=== PATIENT | female | born 1960 | race Caucasian/White ===

== ENCOUNTER 2017-01-22 06:51 | Emergency (ER) | payer BC ==
[~2017-01-22] VITALS: Ht 165.1 cm; Wt 84.8 kg
[~2017-01-22 06:51] MED LIST: GABA-112 PO
[2017-01-22 06:59] VITALS: Ht 165.1 cm; Wt 84.8 kg
[2017-01-22] MEDS ORDERED: NAPR250T43 PO (07:23)
[2017-01-22] MEDS ORDERED: OXYCODONE/ACETAMINOPHEN 5-325 TAB PO ONE (07:30)
--- NOTE | 2017-01-22 07:37 | DIAGNOSTIC IMAGING REPORT ---
RIGHT KNEE 1 OR 2 VIEWS ROUTINE CLINICAL HISTORY: Right knee pain. Trauma. COMPARISON: None. DISCUSSION: No acute fractures are visualized. There is trace joint fluid. There are mild osteoarthritic changes. IMPRESSION: Mild degenerative change. No acute fractures are visualized. Electronically signed by: Manjeet White M.D. 01/22/2017 7:35 AM Dictated Date/Time: 01/22/2017 7:34 AM
[2017-01-22] MEDS ORDERED: OXYC-57 PO (07:39)
[2017-01-22 07:50] VITALS: BP 133/71; PULSE 95; O2SAT 99
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
== END 2017-01-22 07:58 | disposition home or self-care (01) ==
LOC: C.EDB 06:54 → C.EDA 07:58
DX: M25.561 Pain in right knee (principal); F17.210 Nicotine dependence, cigarettes, uncomplicated; Z96.652 Presence of left artificial knee joint; Z82.49 Family history of ischemic heart disease and other diseases of the circulatory system; Z83.6 Family history of other diseases of the respiratory system; Z79.899 Other long term (current) drug therapy

== ENCOUNTER 2020-03-08 09:02 | Observation (INO) ==
--- NOTE | 2020-03-02 15:18 | Anesthesiology Consultation ---
Date of Service March 02, 2020 Assessment & Plan (1) Encounter for pre-operative examination: Per nursing phone assessment on 02/29/20: Travel screen- Lives in [facility] [place]. Traveled to [facility] for doctor appointments. No known COVID-19 positive contacts. No current COVID-19 related symptoms. Patient had COVID-19 testing done 03/01 ([facility] [place])- Awaiting results. - Preop labs out of date: will order CBC, coags for AM DOS Chart Review Chart Review: Acceptable Risk for Surgery (pending COVID-19 results) and Patient NOT seen in Pre Admission Testing History Surgery Operation Date: 03/08/20 07:00 Proposed Procedures p Right Total Knee Arthroplasty - Forest Carrillo, DO Height/Weight Height: 5 ft 5 in Weight: 85.275 kg Allergies Allergy/AdvReac Type Severity Reaction Status Date / Time oxycodone [From Percocet] Allergy Mild HIVES,RASH Verified 02/29/20 12:33 amitriptyline [From Elavil] AdvReac Mild MENTAL Verified 02/29/20 12:33 EFFECT - "went blank" zolpidem [From Ambien] AdvReac MENTAL Verified 02/29/20 12:33 EFFECT "went blank" Medications Home Medications Medication Instructions Recorded Confirmed Last Taken alprazolam [Xanax] 0.25 mg PO TID 12/04/19 02/29/20 Unknown bupropion HCl [Wellbutrin SR] 150 mg PO BID 12/04/19 02/29/20 Unknown diphenhydramine-acetaminophen 1 tab PO HS 12/04/19 02/29/20 Unknown [Tylenol PM Extra Strength] ibuprofen 600 mg PO Q8H PRN 12/04/19 02/29/20 Unknown omeprazole magnesium [Prilosec OTC] 20 mg PO QAM 12/04/19 02/29/20 Unknown tramadol 100 mg PO TID 12/04/19 02/29/20 Unknown gabapentin 1,200 mg PO TID 02/29/20 02/29/20 Unknown Past Medical History Medical History Anxiety Back pain Chronic knee pain GERD (gastroesophageal reflux disease) History of DVT (deep vein thrombosis) 2012- s/p AC x few months, felt 2/2 stasis/lack of mobility History of esophageal dilatation Neuropathy LLE Osteoarthritis Past Family History Family History Mother Diabetes Grandmother (Paternal) Diabetes Other No family history of adverse response to anesthesia Past Surgical History Surgical History H/O toe surgery History of esophagogastroduodenoscopy (EGD) + dilation History of laparoscopy fulgeration of endometriosis History of meniscectomy of right knee History of total left knee replacement Hx of appendectomy Hx of colonoscopy Nausea and vomiting after administration of anesthetic agent S/P epidural steroid injection Social History Smoking Status: Current every day smoker tobacco type: cigarettes Smoking cigarettes per day: 1/2 PACK OR MORE Do You Dip or Chew Tobacco: No Hx Alcohol Use: No Hx Substance Use: No substance use type: does not use Testing Electrocardiogram Date: 12/11/19 Findings: + NSR @ (73) Chest X-Ray Date: 12/11/19 Atherosclerosis of the aortic arch. Cardiac silhouette normal in size. Minimal left basilar opacities. No pleural effusion or pneumothorax. Osseous structures normal. Upper abdomen normal. IMPRESSION: Minimal left basilar opacities likely atelectasis or scarring. No convincing evidence of acute cardiopulmonary disease.
--- NOTE | 2020-03-07 07:53 | History & Physical Report ---
Date of Service March 07, 2020 Assessment & Plan (1) DJD (degenerative joint disease) of knee: We will proceed with a right total knee arthroplasty. Postoperatively she will be started on aspirin for DVT prophylaxis and kept overnight in the hospital for postop medical management. She plans to have home therapy or possible [facility] upon discharge. Aleisha is a low risk for knee replacement surgery. She does not have any major comorbidities. Present on Admission?: Yes History of Present Illness Chief Complaint: Primary osteoarthritis of the right knee Primary Care Provider: Silverio Banks MD Aleisha is a pleasant 59-year-old female who is been dealing with chronic increasing right knee pain. X-rays and clinical examination have been diagnostic for primary osteoarthritis of the right knee. She does have a history of a left knee replacement done by Dr. Bernal in [place]. After failing conservative treatment, she has elected to proceed with a right total knee arthroplasty. Allergies Allergy/AdvReac Type Severity Reaction Status Date / Time oxycodone [From Percocet] Allergy Mild HIVES,RASH Verified 02/29/20 12:33 amitriptyline [From Elavil] AdvReac Mild MENTAL Verified 02/29/20 12:33 EFFECT - "went blank" zolpidem [From Ambien] AdvReac MENTAL Verified 02/29/20 12:33 EFFECT "went blank" Home Medications Home Medications Medication Instructions Recorded Confirmed Type alprazolam [Xanax] 0.25 mg PO TID 12/04/19 02/29/20 History bupropion HCl [Wellbutrin SR] 150 mg PO BID 12/04/19 02/29/20 History diphenhydramine-acetaminophen 1 tab PO HS 12/04/19 02/29/20 History [Tylenol PM Extra Strength] ibuprofen 600 mg PO Q8H PRN 12/04/19 02/29/20 History omeprazole magnesium [Prilosec OTC] 20 mg PO QAM 12/04/19 02/29/20 History tramadol 100 mg PO TID 12/04/19 02/29/20 History gabapentin 1,200 mg PO TID 02/29/20 02/29/20 History Past Med/Surg History Medical History Anxiety Back pain Chronic knee pain GERD (gastroesophageal reflux disease) History of DVT (deep vein thrombosis) 2013- s/p AC x few months, felt 2/2 stasis/lack of mobility History of esophageal dilatation Neuropathy LLE Osteoarthritis Surgical History H/O toe surgery History of esophagogastroduodenoscopy (EGD) + dilation History of laparoscopy fulgeration of endometriosis History of meniscectomy of right knee History of total left knee replacement Hx of appendectomy Hx of colonoscopy Nausea and vomiting after administration of anesthetic agent S/P epidural steroid injection Family History Mother Diabetes Grandmother (Paternal) Diabetes Other No family history of adverse response to anesthesia Social History Preferred Language: Sami Communication Ability: Effective Box Stacker Required: No Beliefs That Will Affect Care: None Current Living Situation: Alone Feels Safe at Home: Yes Smoking Status: Current every day smoker Tobacco Type: cigarettes ; Cigarettes Per Day: 1/2 PACK OR MORE ; Second Hand Exposure: Yes ; Hx Alcohol Use: No Hx Substance Use: No Review of Systems Review of Systems: All systems reviewed & are unremarkable except as noted in HPI & below Physical Exam Constitutional: WD/WN, vitals as above Eyes: PERRL, conjunctivae normal, anicteric sclerae ENMT: external ear and nose normal, oropharynx normal Neck: trachea midline, no thyromegaly Respiratory: normal respiratory effort Cardiovascular: RRR, no murmur, no edema Gastrointestinal (Abdomen): normal bowel sounds, soft, nontender, no hepatosplenomegaly Musculoskeletal: On physical examination of the right knee there is a trace effusion. There is near full range of motion and no evidence of instability. There is significant tenderness palpation along the medial and lateral joint lines and over the distal femoral condyles. Psychiatric: A+Ox3, euthymic affect Results & Data Results & Data ([facility]) Diagnostic Findings Radiographs of the right knee demonstrate advanced osteoarthritis with joint space narrowing osteophyte formation and [id number] articulation. PG Care Time/CCT Total # of Minutes Spent Total Time Spent with Patient: Total time spent is greater than 50% in coordination of care (as documented) at patient's floor/unit and/or counseling patient: Coding Level of Care Code 81802 Initial Inpt Care Lvl 3 Diagnoses DJD (degenerative joint disease) of knee M17.10
[~2020-03-08 09:02] MED LIST changes: +ACETAMINOPHEN 500 MG TAB PO SCH; +BUPIVACAINE 0.25% 30 ML VIAL ONE; +BUPIVACAINE 0.5 % 5 MG/1 ML PF 10ML VIAL ONE; +CEFAZOLIN 2000MG 2,000 MG/15 ML SYR IV SCH; +FAMOTIDINE 20 MG TAB PO SCH; -GABA-112 PO; +GABAPENTIN 600 MG DOSE PO SCH; +LR 500ML BOLUS, THEN 15ML/HR IV SCH; +LR 60ML/HR IV SCH; +ROPIVACAINE 0.5% HCL/PF 150 MG, BUPIVACAINE 0.5% MPF 30 ML, EPINEPHrine 30MG/30ML (OR U... INFIL SCH; +TRANEXAMIC ACID 1,000 MG **IV Intra-op IV SCH; +TRANEXAMIC ACID 1,000 MG **IV Pre-op IV SCH; +dexAMETHasone 4 MG TAB PO SCH
[2020-03-08 09:36] LABS: Basophils # (auto) 0.03 K/uL (0-0.2); Basophils % (auto) 0.6 %; Eosinophils # (auto) 0.12 K/uL (0-0.5); Eosinophils % (auto) 2.4 %; Hematocrit (blood only) 38.5 % (37-47); Hemoglobin 12.9 g/dL (12.0-16.0); Immature Granulocytes # (auto) 0.02 K/uL (0.00-0.02); Immature Granulocytes % (auto) 0.4 %; Lymphocytes # (auto) 1.69 K/uL (1.2-3.4); Lymphocytes % (auto) 34.1 %; Mean Corpuscular Hemoglobin 34.2 pg (25-34); Mean Corpuscular Volume 102.1 fL (80-100); Mean Platelet Volume 10.2 fL (7.4-10.4); Monocytes # (auto) 0.26 K/uL (0.11-0.59); Monocytes % (auto) 5.2 %; Neutrophils # (auto) 2.84 K/uL (1.4-6.5); Neutrophils % (auto) 57.3 %; Platelet Count 330 K/uL (130-400); RDW Coefficient of Variation 13.9 % (11.5-14.5); Red Blood Count 3.77 M/uL (4.2-5.4); White Blood Count 4.96 K/uL (4.8-10.8)
[2020-03-08 09:54] LABS: Mean Corpuscular Hgb Conc 33.5 g/dL (32-36); Partial Thromboplastin Ratio 0.8; Partial Thromboplastin Time 23.6 Seconds (21.0-31.0); Prothrombin Time 10.1 Seconds (9.0-12.0)
[2020-03-08] MEDS ORDERED: ePHEDrine sulfate 50 MG/ML AMP IV PRN ×2 (10:47→13:04)
[2020-03-08] MEDS ORDERED: ATROPINE SULFATE 0.1 MG/ML 10ML SYR IV PRN ×2 (10:47→13:04)
[2020-03-08] MEDS ORDERED: MIDAZOLAM HCL 1 MG/ML 2ML VIAL ONE ×3 (10:53→11:40)
--- NOTE | 2020-03-08 11:04 | History & Physical Bridge Note ---
Date of Service March 08, 2020 History & Physical Bridge Note I have examined the patient, reviewed the History & Physical and in the interval since the performance of the History & Physical I have noted the following changes of clinical significance: no changes noted
[2020-03-08] MEDS ORDERED: ORTHO JOINT ANESTHETIC ONE (11:09)
[2020-03-08] MEDS ORDERED: PROPOFOL IV EMULSION 10 MG/ML 20 ML VIAL IV ONE ×2 (11:55→12:35)
[2020-03-08] MEDS ORDERED: LIDOCAINE HCL 2% 2 ML VIAL/AMP(20MG/ML) INFIL ONE (11:55)
--- NOTE | 2020-03-08 13:05 | Operative Report ---
PG Post Operative Report Pre & Post Diagnosis Operation Date: 03/08/20 10:40 Pre-Op Diagnosis: Right Knee Degenerative Joint Disease Post-Op Diagnosis: Right Knee Degenerative Joint Disease I identified the patient and participated in the time-out.: Yes Procedure Operation Date: 03/08/20 10:40 Actual Procedures p Right Total Knee Arthroplasty(Right) - Forest Carrillo DO Surgeon Forest Carrillo DO Metal Sprayer Protective Coating Forest Pabon PAC Estimated Blood Loss 10 Findings Consistent with Post-Op Diagnosis Specimens Right femoral and tibial bone Complications none Disposition Disposition: Recovery Room Indications Aleisha is a pleasant 59-year-old female who presented to my office with complaints of chronic increasing right knee pain. X-rays and clinical examination were diagnostic for advanced osteoarthritis of the right knee. After failing conservative treatment, she elected proceed with a right total knee arthroplasty. Description of Procedure Implants used: I used a Marya Persona total knee arthroplasty system with a size 7 femur, D tibia, 29 patella, and a size 12 medial congruent polyethylene bearing. All components were cemented in place with Palacos G cement. Aleisha arrived [facility] for the above procedure. She was seen in the preoperative holding area and the operative extremity was identified and signed. She was given a preoperative antibiotic, TXA, a spinal anesthetic and an adductor nerve block. She was taken back to the operating room and laid on the table in supine position. She was given basic sedation. The operative knee was then prepped and draped in sterile fashion. A timeout was done, and the patient and the operative extremity was properly identified. A midline incision was made directly over the patella. Dissection was taken down to the extensor mechanism. A subvastus arthrotomy was used. The medial retinaculum was released and the fat pad was mostly excised. The knee was flexed and the ACL, PCL, and meniscus were removed. A drill was sent down the center of the femoral canal followed by an intramedullary sumeet. Off that sumeet a distal femoral cutting block was placed. 9 mm was resected off the distal femur at 5 of valgus. A posterior referencing AP sizing guide was then placed on the distal femur. The femur measured to be a size 7. 2 drill holes were placed in 3 of external rotation. A 4-in-1 cutting block was then impacted into place. Anterior, posterior, and chamfer cuts were then made. The proximal tibia was then exposed. An external tibial alignment guide was placed. A tibial cut guide was then anchored in place to resect 2 mm off the low medial side. The proximal tibia was then resected. The tibia measured to be a size D. The tibial plate was then placed in the appropriate rotation and the tibia was drilled and punched. The posterior aspect of the knee was then opened up and any additional meniscus fragments and osteophytes were removed. Trial components were then placed. I used a size 12 medial congruent polyethylene insert. The knee was brought through a full range of motion and felt to be stable. The patella was then everted and 8 mm was resected off the posterior aspect of the patella. The patella measured to be a size 29. 3 peg holes were then drilled. A trial patella was placed. The knee was once again brought through a full range of motion and felt to be stable. Trial components were then removed. The surrounding soft tissues were injected with 100 cc of an orthopedic pain control cocktail. All components were then cemented into place with Palacos G cement. The final polyethylene insert was then snapped into place and the anterior bar was locked. Once cement was dry the tourniquet was deflated. Hemostasis was obtained. A dilute betadyne lavage was then done for 3 minutes. The joint was then irrigated with normal saline solution. The subvastus arthrotomy was then closed with #1 Vicryl suture. The skin was closed with 2-0 Vicryl, 3-0V lock suture, and dedra. A soft compressive dressing was placed. She was then transferred to a hospital bed and taken to the postanesthesia care unit in stable condition. She tolerated the procedure well. Forest Pabon PA-C, was present for the entire procedure. He was critical for patient positioning, prepping, draping, retraction exposure, wound closure and application of sterile dressing. I attest to the content of the Intraoperative Record and any orders documented therein. Any exceptions are noted below.
--- NOTE | 2020-03-08 13:47 | XRay Report ---
RIGHT KNEE 2 VIEWS History: Right total knee arthroplasty. Degenerative arthritis. Postop. FINDINGS: The patient is status post a right total knee arthroplasty. The hardware is intact. No frac ture or dislocation. Skin dedra and surgical drains are in place. IMPRESSION: Right total knee arthroplasty. No evidence for hardware complication. ACT 112: Negative or not required by law. Electronically signed by: Chung Miguel M.D. 03/08/2020 1:46 PM
--- NOTE | 2020-03-08 14:16 | Anesthesiology Progress Note ---
Date of Service March 08, 2020 Anesthesia Post Procedure Vital Signs Vital Signs: Temp Pulse Pulse Resp BP BP Pulse Ox 03/08/20 14:00 77 22 123/92 94 03/08/20 13:45 36.8 C 77 20 135/79 95 03/08/20 13:35 81 15 120/79 95 03/08/20 13:25 82 14 104/67 99 03/08/20 13:18 36.7 C 82 18 105/68 95 03/08/20 09:35 36.8 C 89 18 141/89 H 95 Pain Intensity Right Knee: Pain Intensity: 0 Transfer of Care Handoff Completed per policy Notes Mental Status: alert / awake / arousable and participated in evaluation Nausea / Vomiting: adequately controlled Pain: adequately controlled Airway Patency, RR, SpO2: stable & adequate BP & HR: stable & adequate Hydration State: stable & adequate Neuraxial Anesthesia: was administered and sensory block is resolving Anesthetic Complications: no major complications apparent and Pt Satisfied with anesthetic care
[2020-03-08] MEDS ORDERED: MAGNESIUM HYDROXIDE SUSP 30 ML UDC PO PRN (14:27)
[2020-03-08] MEDS ORDERED: bisacodyL 10 MG SUPP PR PRN (14:27)
[2020-03-08] MEDS ORDERED: METOCLOPRAMIDE HCL INJ 5 MG/ML 2 ML VIAL IV PRN (14:27)
[2020-03-08] MEDS ORDERED: ONDANSETRON INJ 2 MG/ML 2 ML VIAL IV PRN (14:27)
[2020-03-08] MEDS ORDERED: NALOXONE HCL 0.4 MG/1 ML VIAL/CARP IV PRN (14:27)
[2020-03-08] MEDS: SODIUM CHLORIDE 0.9% 1000ML 1,000 ML IV SCH (15:27)
[2020-03-08] MEDS: KETOROLAC 30 MG/ML VIAL IV SCH ×2 (15:42→21:20)
[2020-03-08] MEDS: ALPRAZolam 0.25 MG TABLET PO SCH ×2 (15:42→21:19)
[2020-03-08] MEDS: GABAPENTIN 600 MG TAB PO SCH ×2 (16:18→21:19)
[2020-03-08] MEDS: CEFAZOLIN 2000MG 2,000 MG/15 ML SYR IV SCH (18:00)
[2020-03-08] MEDS: HYDROCODONE/ACETAMINOPHEN 10/325 TAB PO PRN (19:07)
[2020-03-08] MEDS ORDERED: SENNA 8.6 MG TAB PO SCH (21:00)
[2020-03-08] MEDS: DOCUSATE SODIUM 100 MG CAP PO SCH (21:19)
[2020-03-09] MEDS: SODIUM CHLORIDE 0.9% 1000ML 1,000 ML IV SCH (00:04)
[2020-03-09] MEDS: HYDROCODONE/ACETAMINOPHEN 10/325 TAB PO PRN (01:11)
[2020-03-09] MEDS: CEFAZOLIN 2000MG 2,000 MG/15 ML SYR IV SCH (02:07)
[2020-03-09] MEDS: KETOROLAC 30 MG/ML VIAL IV SCH ×2 (03:18→09:54)
[2020-03-09] MEDS: HYDROmorphone INJ 0.5 MG/0.5 ML SYR IV PRN ×2 (05:43→11:09)
--- NOTE | 2020-03-09 06:56 | Orthopedic Progress Note ---
Date of Service March 09, 2020 Assessment & Plan (1) History of total right knee replacement: Overall she is doing very well. She is not having too much pain in the right knee. She will be seen by physical therapy this morning for ambulation and range of motion exercises. She is on Xarelto for DVT prophylaxis. She can be discharged home later today if she does well with physical therapy. She will follow-up with orthopedics in 2 weeks. Present on Admission?: Yes Subjective Aleisha was seen and examined at bedside this morning. Overall she is doing very well. She is having too much pain in the right knee. She has been up and ambulating to the bathroom. She has no complaints. Physical Exam Musculoskeletal: On physical examination of the right knee, the dressing has a little bit of bloody drainage but not much. Her knee is in about 5 degrees of flexion. She has active dorsiflexion and plantarflexion of her right ankle. Results & Data ([facility]) Vital Signs (Past 12 Hours) Vital Signs Temp Pulse Resp BP Pulse Ox 03/09/20 02:54 36.4 C L 89 20 130/78 96 03/08/20 23:26 36.5 C 91 H 20 132/85 96 03/08/20 19:05 36.5 C 86 18 131/85 95 Laboratory Results H & H 03/08/20 Range/Units 09:28 Hgb 12.9 (12.0-16.0) g/dL Hct 38.5 (37-47) % Coagulation 03/08/20 Range/Units 09:28 INR 1.0 (0.9-1.1) Diagnostic Findings Postoperative x-rays of the right knee show the prosthesis to be in anatomic alignment without any evidence of fracture, dislocation, or loosening. PG Care Time/CCT Total # of Minutes Spent Total Time Spent with Patient: Total time spent is greater than 50% in coordination of care (as documented) at patient's floor/unit and/or counseling patient: Coding Level of Care Code None Diagnoses History of total right knee replacement Z96.651
--- NOTE | 2020-03-09 06:57 | Discharge Summary ---
Date of Service March 09, 2020 Admission HPI Per Admitting Provider Aleisha is a pleasant 59-year-old female who is been dealing with chronic increasing right knee pain. X-rays and clinical examination have been diagnostic for primary osteoarthritis of the right knee. She does have a hist ory of a left knee replacement done by Dr. Bernal in [place]. After failing conservative treatment, she has elected to proceed with a right total knee arthroplasty. Principal Diagnosis Right total knee arthroplasty Discharge Data Allergies Allergy/AdvReac Type Severity Reaction Status Date / Time oxycodone [From Percocet] Allergy Mild HIVES,RASH Verified 03/08/20 09:48 amitriptyline [From Elavil] AdvReac Mild MENTAL Verified 03/08/20 09:48 EFFECT - "went blank" zolpidem [From Ambien] AdvReac MENTAL Verified 03/08/20 09:48 EFFECT "went blank" Consultations 03/08/20 14:27 Consult Case Management - Discharge Planning Routine Procedures Performed Operation Date: 03/08/20 10:40 Actual Procedures p Right Total Knee Arthroplasty(Right) - Forest Carrillo DO Ordered Studies 03/08/20 05:00 US - OR guided needle placemen Routine Hospital Course (1) History of total right knee replacement: On March 08, 2020 Aleisha arrived at [facility] and underwent a right total knee arthroplasty without complication. She had a spinal anesthetic. Postoperatively she was started on Xarelto for DVT prophylaxis and transferred to the general orthopedic floors. Her hospital course was uneventful. On postop day #1 her H&H was stable and her pain was well controlled. She was able to participate well with physical therapy doing ambulation and range of motion exercises. She was then discharged home. She will follow-up with orthopedics in 2 weeks. Total Time Total Time Spent Total Time Spent (In Minutes): 20 Discharge Plan Discharge Items Patient Disposition: Home - Home Health Services Reason For Visit: Right Knee Degenerative Joint Disease Discharge Diagnosis: Right total knee arthroplasty Activity: As commented below Non-emergency contact: Surgeon Call non-emergency contact if: your wound has increased redness and your wound has increased drainage Follow-up/Referrals: Silverio Banks MD [Primary Care Provider] - Diet: Regular Addtl Attending Provider Instructions: Activity and Therapy Recommendations: * If you are using [facility] then therapy will be provided at your home until they feel you have accomplished all of your goals. * If you are using [facility] then Physical Therapy will be provided until they feel you are ready to start Outpatient Physical Therapy. * If you are not using home therapy then Outpatient Physical Therapy should start about 3-5 days from your day of surgery. Therapy will last about 6-10 weeks * It is important not to put a pillow under your knee when you are relaxing or sleeping. It is just as important to make sure you are getting your knee perfectly straight as it is to regain your knee bend. * You were shown a series of exercises in the hospital. Do these exercises three times each day including the exercises you were shown in physical therapy. * Get up and walk several times each day. For the first four weeks, try not to stand or walk for more than one hour at a time. If you do stand or walk for more than one hour, you will not hurt anything, but your leg will likely swell. * As you feel comfortable, you may change from the walker or crutches to a cane and then to independent walking. Medications: * Narcotic You will likely be sent home from the hospital with a prescription for the narcotic pain medication that worked best throughout your stay. * Aspirin Most patients will be required to take Aspirin 81mg twice a day for 6 weeks after surgery. This is obtained [id number] and a prescription is not necessary. * Other medications may be prescribed for specific circumstances. If you have any questions, please call the office at . * Resume previous home medications unless otherwise instructed TEDs/Elastic Stockings: The white elastic stockings help limit swelling and prevent blood clots from forming in your legs.~ The more you wear them, the more they work. Wear them for six weeks. Dressing Care: Leave the silver dressing in place for 7 days from the day of surgery. After 7 days you may remove the dressing. If the incision is not draining then you may leave the dedra open to air. If there is a little bit of drainage or if the dedra are getting stuck on your clothing then cover the incision with a dry dressing. The dedra will be removed at your 2 week follow-up appointment. Showering: You may shower with the silver dressing in place. Do not scrub or soak the dressing. Pat it dry. After the dressing is removed you may shower with the dedra exposed. Let the soapy shower water run over the dedra and pat them dry. Do not scrub or soak the incision. Things To Watch For: * Drainage from the incision site that occurs more than one week after your surgery. * Increased redness at the incision site. * Fever above 102 degrees Fahrenheit. * Unusual chest pain or shortness of breath. * Call [facility] at with any of the above problems Follow-Up Visit: Follow-up with Dr. Carrillo's PA (Forest Pabon) 2-3 weeks after your day of surgery. He will remove your dedra and answer any questions. If you have any additional questions or concerns, Dr Carrillo is usually in the office at the same time and will be available An appointment was probably scheduled when you signed-up for surgery in the office. If you have any questions call Office Instructions: More detailed instructions as well as Frequently Asked Questions were provided in a folder by our office when you signed-up for surgery. Please review these instructions when you get home. If you have any further questions or concerns, please feel free to call the office at [phone] Pending Studies at Discharge: No Stand-Alone Forms: My [facility], Smoking Cessation Medications and DC Order Prescriptions: New hydrocodone-acetaminophen [[place]] 10-325 mg Tablet 1 tab PO Q6H PRN (Reason: pain) Qty: 40 RF: 0 Xarelto 10 mg Tablet 10 mg PO DAILY Qty: 14 RF: 0 Continued alprazolam [Xanax] 0.25 mg Tablet 0.25 mg PO TID RF: 0 ibuprofen 600 mg Tablet 600 mg PO Q8H PRN (Reason: Pain) RF: 0 diphenhydramine-acetaminophen [Tylenol PM Extra Strength] 25-500 mg Tablet 1 tab PO HS RF: 0 omeprazole magnesium [Prilosec OTC] 20 mg Tablet,Delayed Release (Dr/Ec) 20 mg PO QAM RF: 0 gabapentin 600 mg Tablet 1,200 mg PO TID RF: 0 Discontinued tramadol 50 mg Tablet 100 mg PO TID RF: 0 Discharge Orders: Discharge Order (Routine); Ordered 06/06/20 Ordered By: Forest Carrillo Admission Data Admit Date/Time: 03/08/20 13:24 Attending Provider: Forest Carrillo Admit Provider: Forest Carrillo Primary Care Provider: Silverio Banks Coding Level of Care Code D/C Day Management <30 mins Diagnoses History of total right knee replacement Z96.651
[2020-03-09 06:59] LABS: Hematocrit (blood only) 32.5 % (37-47); Hemoglobin 11.2 g/dL (12.0-16.0); Mean Corpuscular Hemoglobin 34.6 pg (25-34); Mean Corpuscular Hgb Conc 34.5 g/dL (32-36); Mean Corpuscular Volume 100.3 fL (80-100); Mean Platelet Volume 10.1 fL (7.4-10.4); Platelet Count 259 K/uL (130-400); RDW Coefficient of Variation 13.6 % (11.5-14.5); RDW Standard Deviation 49.5 fL (36.4-46.3); Red Blood Count 3.24 M/uL (4.2-5.4); White Blood Count 8.76 K/uL (4.8-10.8)
[2020-03-09 07:36] LABS: BUN Creatinine Ratio 19.8 (10-20); Calcium 8.6 mg/dl (8.5-10.1); Creatinine Clr Calc Pharmacy 68.1 ml/min; Est GFR (African American) 72.8; Est GFR (Non-African American) 62.8; Potassium 3.9 mmol/L (3.5-5.1)
[2020-03-09] MEDS: GABAPENTIN 600 MG TAB PO SCH (07:45)
[2020-03-09] MEDS: DOCUSATE SODIUM 100 MG CAP PO SCH (07:45)
[2020-03-09] MEDS: ALPRAZolam 0.25 MG TABLET PO SCH (07:48)
[2020-03-09] MEDS ORDERED: dexAMETHasone 4 MG TAB PO SCH (08:00)
[2020-03-09] MEDS ORDERED: PANTOprazole 40 MG TAB PO SCH (09:00)
[2020-03-09] MEDS ORDERED: RIVAROXABAN 10 MG TABLET PO SCH (09:00)
[2020-03-09] MEDS ORDERED: MULTIVITAMIN TAB PO SCH (09:00)
== END 2020-03-09 12:23 | disposition home health service (06) ==
LOC: ASU 09:02 → 3E 09:02

== ENCOUNTER 2020-04-25 13:04 | Observation (INO) ==
[~2020-04-25 13:04] MED LIST changes: -ACETAMINOPHEN 500 MG TAB PO SCH; -BUPIVACAINE 0.25% 30 ML VIAL ONE; -BUPIVACAINE 0.5 % 5 MG/1 ML PF 10ML VIAL ONE; -CEFAZOLIN 2000MG 2,000 MG/15 ML SYR IV SCH; -FAMOTIDINE 20 MG TAB PO SCH; -GABAPENTIN 600 MG DOSE PO SCH; +LR 15ML/HR IV SCH; -LR 500ML BOLUS, THEN 15ML/HR IV SCH; -LR 60ML/HR IV SCH; -ROPIVACAINE 0.5% HCL/PF 150 MG, BUPIVACAINE 0.5% MPF 30 ML, EPINEPHrine 30MG/30ML (OR U... INFIL SCH; -TRANEXAMIC ACID 1,000 MG **IV Intra-op IV SCH; -TRANEXAMIC ACID 1,000 MG **IV Pre-op IV SCH; +VANCOMYCIN HCL 1,250 MG in SODIUM CHLORIDE 0.9% 250 ML IV SCH; -dexAMETHasone 4 MG TAB PO SCH
[2020-04-25] MEDS ORDERED: DEXAMETHASONE SOD INJ 4 MG/ML VIAL ONE (13:41)
[2020-04-25] MEDS ORDERED: PROPOFOL IV EMULSION 10 MG/ML 20 ML VIAL IV ONE ×2 (13:41→16:10)
[2020-04-25] MEDS ORDERED: ONDANSETRON INJ 2 MG/ML 2 ML VIAL ONE (13:41)
[2020-04-25] MEDS ORDERED: MIDAZOLAM HCL 1 MG/ML 2ML VIAL ONE ×2 (13:41→15:53)
[2020-04-25] MEDS ORDERED: fentaNYL citrate 100 MCG/2 ML VIAL ONE (13:41)
[2020-04-25] MEDS ORDERED: LIDOCAINE HCL 2% 2 ML VIAL/AMP(20MG/ML) INFIL ONE ×2 (13:41→16:10)
[2020-04-25] MEDS ORDERED: ACETAMINOPHEN 500 MG TAB ONE (13:48)
[2020-04-25] MEDS ORDERED: dexAMETHasone 4 MG TAB PO ONE (13:49)
[2020-04-25] MEDS ORDERED: FAMOTIDINE 20 MG TAB ONE (13:49)
[2020-04-25] MEDS ORDERED: GABAPENTIN 300 MG CAP ONE (13:49)
[2020-04-25] MEDS ORDERED: VANCOMYCIN HCL 1 GM/270 ML BAG ONE (13:56)
--- NOTE | 2020-04-25 13:56 | History & Physical Report ---
Date of Service April 25, 2020 Assessment & Plan (1) Postoperative wound dehiscence: We will take her back to the operating room and do an I&D of the superficial wound and closure. If it appears that the infection tracks deep I will be aggressive at opening the knee up and doing a complete polyethylene exchange and deep irrigation and debridement. She understands the risks, benefits, and alternatives to the procedure and is elected to proceed. Consents were signed at bedside. Postoperatively she will be kept on IV antibiotics and at least kept overnight for postoperative medical management. It depends what is seen intraoperatively on how long she will stay. Present on Admission?: Yes History of Present Illness Chief Complaint: Dehiscence right knee wound Primary Care Provider: Silverio Banks MD Aleisha is a pleasant 59-year-old female who underwent a right total knee arthroplasty about 6 weeks ago. 2 weeks after the procedure she was seen in our office and she was doing well. 4 weeks after the procedure she came back to the office and noticed little bumps on her incision that had expressed a small amount of clear liquid. We were unable to express any clear fluid in the office but it looks like she had a couple of small suture abscesses around the incision. She continued to progress well with her knee and we started her on Keflex. Unfortunately she only tolerated the Keflex for about 4 days. She did not call our office to tell us that she had stopped the Keflex. She then fell earlier today directly onto her right flexed knee. She dehisced the wound. She called our office and I had her sent directly over the hospital for an urgent I&D of the right knee with possible poly-exchange. Allergies Allergy/AdvReac Type Severity Reaction Status Date / Time oxycodone [From Percocet] Allergy Mild HIVES,RASH Verified 03/08/20 09:48 amitriptyline [From Elavil] AdvReac Mild MENTAL Verified 03/08/20 09:48 EFFECT - "went blank" cephalexin [From Keflex] AdvReac Nausea Verified 04/25/20 13:30 zolpidem [From Ambien] AdvReac MENTAL Verified 03/08/20 09:48 EFFECT "went blank" Home Medications Home Medications Medication Instructions Recorded Confirmed Type alprazolam [Xanax] 0.25 mg PO TID 12/04/19 04/25/20 History diphenhydramine-acetaminophen 1 tab PO HS 12/04/19 04/25/20 History [Tylenol PM Extra Strength] ibuprofen 600 mg PO Q8H PRN 12/04/19 04/25/20 History omeprazole magnesium [Prilosec OTC] 20 mg PO QAM 12/04/19 04/25/20 History gabapentin 1,200 mg PO TID 02/29/20 04/25/20 History hydrocodone-acetaminophen [[place]] 1 tab PO Q6H PRN #40 tab 03/08/20 04/25/20 Rx hydrocodone 10 mg-acetaminophen 1 tab PO Q6H PRN #30 tab 03/18/20 04/25/20 Rx 325 mg tablet hydrocodone 5 mg-acetaminophen 325 1 tab PO Q6H PRN #30 tab 03/28/20 04/25/20 Rx mg tablet cephalexin 500 mg capsule 500 mg PO Q6H PRN 7 Days #28 cap 04/10/20 04/25/20 Rx hydrocodone 5 mg-acetaminophen 325 1 - 2 tab PO Q6H PRN #30 tab 04/10/20 04/25/20 Rx mg tablet hydrocodone 5 mg-acetaminophen 325 1 tab PO Q6H PRN #30 tab 04/17/20 04/25/20 Rx mg tablet Past Med/Surg History Medical History Anxiety Back pain Chronic knee pain GERD (gastroesophageal reflux disease) History of DVT (deep vein thrombosis) 2012- s/p AC x few months, felt 2/2 stasis/lack of mobility History of esophageal dilatation Neuropathy LLE Osteoarthritis Surgical History H/O toe surgery History of esophagogastroduodenoscopy (EGD) + dilation History of laparoscopy fulgeration of endometriosis History of meniscectomy of right knee History of total left knee replacement History of total right knee replacement (~03/2020) Hx of appendectomy Hx of colonoscopy Nausea and vomiting after administration of anesthetic agent S/P epidural steroid injection Family History Mother Diabetes Grandmother (Paternal) Diabetes Other No family history of adverse response to anesthesia Social History Smoking Status: Current every day smoker Cigarettes Per Day: 1/2 PACK OR MORE; Second Hand Exposure: Yes; Hx Alcohol Use: No Hx Substance Use: No Preferred Language: Amharic Communication Ability: Effective Clerical Supervisor Required: No Beliefs That Will Affect Care: None Current Living Situation: Alone Feels Safe at Home: Yes Review of Systems Review of Systems: All systems reviewed & are unremarkable except as noted in HPI & below Physical Exam Constitutional: WD/WN, vitals as above Eyes: PERRL, conjunctivae normal, anicteric sclerae ENMT: external ear and nose normal, oropharynx normal Neck: trachea midline, no thyromegaly Respiratory: normal respiratory effort Cardiovascular: RRR, no murmur, no edema Gastrointestinal (Abdomen): normal bowel sounds, soft, nontender, no hepatosplenomegaly Musculoskeletal: On physical examination of the right knee, there is no signs of infection around the knee. There is a dehiscence of about half of the central aspect of the knee incision. I do not see any purulent discharge coming from the dehisced wound. I am unable to do any range of motion testing of her knee. Psychiatric: A+Ox3, euthymic affect PG Care Time/CCT Total # of Minutes Spent Total Time Spent with Patient: Total time spent is greater than 50% in coordination of care (as documented) at patient's floor/unit and/or counseling patient: Coding Level of Care Code 99721 Initial Inpt Care Lvl 3 Diagnoses Postoperative wound dehiscence T81.31XA
[2020-04-25] MEDS ORDERED: ONDANSETRON INJ 2 MG/ML 2 ML VIAL IV PRN ×2 (13:57→17:48)
[2020-04-25] MEDS ORDERED: BACITRACIN INJ 50,000 UNIT VIAL ONE (13:57)
[2020-04-25] MEDS ORDERED: ATROPINE SULFATE 0.1 MG/ML 10ML SYR IV PRN (13:57)
[2020-04-25] MEDS ORDERED: LABETALOL HCL IV 5 MG/ML 20ML IV PRN (13:57)
[2020-04-25] MEDS ORDERED: MEPERIDINE HCL 25 MG/ML CARP/VIAL IV PRN (13:57)
[2020-04-25] MEDS ORDERED: fentaNYL citrate 100 MCG/2 ML VIAL IV PRN (13:57)
[2020-04-25] MEDS ORDERED: ePHEDrine sulfate 50 MG/ML AMP IV PRN (13:57)
[2020-04-25] MEDS ORDERED: PHENYLEPHRINE 100MCG/ML 5ML SYR IV PRN (13:57)
--- NOTE | 2020-04-25 13:58 | Anesthesiology Consultation ---
Date of Service April 25, 2020 The patient tolerated her surgery in March with adductor canal block and spinal anesthetic. Patient had Covid testing prior to her previous surgery. The patient told the admitting nurse that she has had a "summer cold" with cough for the past several days that she got from her daughter and granddaughter. She has not had a fever. The patient was discussed with Dr. Pisano. She will undergo rapid Covid 19 testing prior to surgery. Assessment & Plan (1) Encounter for pre-operative examination: Chart Review Chart Review: Acceptable Risk for Surgery and Patient NOT seen in Pre Admission Testing Consults Requested none History Surgery Operation Date: 04/25/20 10:20 Proposed Procedures p Possible Poly Exchange - Forest Carrillo DO s Right Knee Irrigation and Dridement - Forest Carrillo DO Height/Weight Height: 5 ft 5 in Weight: 88.8 kg Allergies Allergy/AdvReac Type Severity Reaction Status Date / Time oxycodone [From Percocet] Allergy Mild HIVES,RASH Verified 03/08/20 09:48 amitriptyline [From Elavil] AdvReac Mild MENTAL Verified 03/08/20 09:48 EFFECT - "went blank" cephalexin [From Keflex] AdvReac Nausea Verified 04/25/20 13:30 zolpidem [From Ambien] AdvReac MENTAL Verified 03/08/20 09:48 EFFECT "went blank" Medications Home Medications Medication Instructions Recorded Confirmed Last Taken alprazolam [Xanax] 0.25 mg PO TID 12/04/19 04/25/20 04/25/20 06:00 diphenhydramine-acetaminophen 1 tab PO HS 12/04/19 04/25/20 04/24/20 19:00 [Tylenol PM Extra Strength] ibuprofen 600 mg PO Q8H PRN 12/04/19 04/25/20 04/24/20 22:00 omeprazole magnesium [Prilosec OTC] 20 mg PO QAM 12/04/19 04/25/20 04/25/20 06:00 gabapentin 1,200 mg PO TID 02/29/20 04/25/20 04/25/20 06:00 hydrocodone-acetaminophen [[place]] 1 tab PO Q6H PRN #40 tab 03/08/20 04/25/20 Unknown hydrocodone 10 mg-acetaminophen 1 tab PO Q6H PRN #30 tab 03/18/20 04/25/20 Unkno wn 325 mg tablet hydrocodone 5 mg-acetaminophen 325 1 tab PO Q6H PRN #30 tab 03/28/20 04/25/20 04/24/20 19:00 mg tablet cephalexin 500 mg capsule 500 mg PO Q6H PRN 7 Days #28 cap 04/10/20 04/25/20 04/21/20 hydrocodone 5 mg-acetaminophen 325 1 - 2 tab PO Q6H PRN #30 tab 04/10/20 04/25/20 Unknown mg tablet hydrocodone 5 mg-acetaminophen 325 1 tab PO Q6H PRN #30 tab 04/17/20 04/25/20 Unknown mg tablet NPO Date Last Intake of Fluids: 04/25/20 Time Last Intake of Fluids: 06:00 Date Last Intake of Solids: 04/24/20 Time Last Intake of Solids: 19:00 Past Medical History Medical History Anxiety Back pain Chronic knee pain GERD (gastroesophageal reflux disease) History of DVT (deep vein thrombosis) 2012- s/p AC x few months, felt 2/2 stasis/lack of mobility History of esophageal dilatation Neuropathy LLE Osteoarthritis Past Family History Family History Mother Diabetes Grandmother (Paternal) Diabetes Other No family history of adverse response to anesthesia Past Surgical History Surgical History H/O toe surgery History of esophagogastroduodenoscopy (EGD) + dilation History of laparoscopy fulgeration of endometriosis History of meniscectomy of right knee History of total left knee replacement History of total right knee replacement (~03/2020) Hx of appendectomy Hx of colonoscopy Nausea and vomiting after administration of anesthetic agent S/P epidural steroid injection Social History Smoking Status: Current every day smoker tobacco type: cigarettes Smoking cigarettes per day: 1/2 PACK OR MORE Hx Alcohol Use: No Hx Substance Use: No substance use type: does not use Physical Exam Vital Signs Last Vital Signs Temp 37.2 C 04/25/20 13:51 Pulse 96 H 04/25/20 13:51 Resp 20 04/25/20 13:51 BP 134/95 04/25/20 13:51 Pulse Ox 95 04/25/20 13:51
[2020-04-25] MEDS ORDERED: BUPIVACAINE 0.5 % 5 MG/1 ML PF 10ML VIAL ONE (14:02)
[2020-04-25] MEDS ORDERED: DAKIN'S SOLN 0.25% HALF STRENGTH 473ML BTL EXT ONE (14:45)
[2020-04-25] MEDS ORDERED: LR 15ML/HR IV SCH (15:30)
[2020-04-25] MEDS ORDERED: GLYCOPYRROLATE 0.2 MG/ML VIAL ONE (15:51)
--- NOTE | 2020-04-25 16:50 | Operative Report ---
PG Post Operative Report Pre & Post Diagnosis Operation Date: 04/25/20 10:20 Pre-Op Diagnosis: Wound Dehiscence Right Knee Post-Op Diagnosis: Wound Dehiscence Right Knee I identified the patient and participated in the time-out.: Yes Procedure Operation Date: 04/25/20 10:20 Actual Procedures Irrigation and debridement with wound closure of Right Knee wound Dehiscence (Right) - Forest Carrillo DO Surgeon Forest Carrillo DO Aeronautical Inspector Forest Pabon PAC Estimated Blood Loss 10 Findings Consistent with Post-Op Diagnosis Specimens Swab culture directly in the open wound area Complications none Disposition Disposition: Recovery Room Indications Aleisha is a 59-year-old female who underwent a right total knee arthroplasty about 6 weeks ago. She was placed on Xarelto postoperatively for history of DVTs. She was having very small areas of suture abscess and was placed on a couple days of Keflex. Her wound continues to heal and her postoperative course was uneventful. She then fell hard onto her right flexed knee earlier today. The central aspect of the incision split open. I had her come directly to the operating room. After discussions at bedside, she elected to proceed with a wound exploration and I&D with wound closure. Description of Procedure On April 25, 2020 she arrived at [facility] for the above procedure. She was seen in the preoperative holding area and the operative extremity was identified and signed. She was given a preoperative antibiotic and a spinal anesthetic. She was taken back to the operating room and laid on the table in the supine position. She was put under basic sedation. The right knee was then prepped and draped in sterile fashion. A timeout was done. The patient and the operative extremity was properly identified. There was a 5 cm wound dehiscence in the center of the previous incision. There was no signs of infection. The skin edges were clean and sharp. There was no purulent discharge. I did a swab culture in the central aspect of the open wound. The wound was then irrigated. I used a knife to open incision a little bit proximally and distally. I made sure that the wound did not track deep and there was no evidence that it tracked into the knee joint. I also aspirated the knee joint and was only able to get about 1 to 2 cc of blood out of the knee joint. There was absolutely no signs of infection of the knee joint itself. The wound was then irrigated with 3 L of normal saline solution and pulse lavage. I then did a Betadine lavage for 3 minutes. The Betadine did not go from the superficial wound to the deep knee. The wound was once again irrigated. The skin was then closed with 2-0 nylon suture in a trauma stitch fashion. A Silverlon dressing was placed. A compressive dressing was placed. She was then transferred to a hospital bed and taken to the postanesthesia care unit in stable condition. She tolerated the procedure well. Forest Pabon PA-C, was present for the entire procedure. He was critical for patient positioning, prepping, draping, retraction exposure, wound closure and application of sterile dressing. I attest to the content of the Intraoperative Record and any orders documented therein. Any exceptions are noted below.
--- NOTE | 2020-04-25 17:23 | Anesthesiology Progress Note ---
Date of Service April 25, 2020 Anesthesia Post Procedure Vital Signs Vital Signs: Temp Pulse Pulse Resp BP BP Pulse Ox 04/25/20 17:15 36.9 C 74 16 137/73 96 04/25/20 17:05 67 16 124/72 96 04/25/20 16:55 63 14 119/75 99 04/25/20 16:45 37.5 C 81 20 106/62 96 04/25/20 13:51 37.2 C 96 H 20 134/95 95 Pain Intensity Right Knee: Pain Intensity: 1 Transfer of Care Handoff Completed per policy Notes Mental Status: alert / awake / arousable Patient Amnestic to Procedure: Yes Nausea / Vomiting: adequately controlled Pain: adequately controlled Airway Patency, RR, SpO2: stable & adequate BP & HR: stable & adequate Hydration State: stable & adequate Neuraxial Anesthesia: was administered and sensory block is resolving Anesthetic Complications: no major complications apparent and Pt Satisfied with anesthetic care
[2020-04-25] MEDS ORDERED: METOCLOPRAMIDE HCL INJ 5 MG/ML 2 ML VIAL IV PRN (17:48)
[2020-04-25] MEDS ORDERED: MAGNESIUM HYDROXIDE SUSP 30 ML UDC PO PRN (17:48)
[2020-04-25] MEDS ORDERED: bisacodyL 10 MG SUPP PR PRN (17:48)
[2020-04-25] MEDS ORDERED: NALOXONE HCL 0.4 MG/1 ML VIAL/CARP IV PRN (17:48)
[2020-04-25] MEDS ORDERED: OXYCODONE HCL IR 5 MG TAB (IMMEDIATE RELEASE) PO PRN (17:48)
[2020-04-25] MEDS ORDERED: VANCOMYCIN CONSULT ACTIVE PRN (17:48)
[2020-04-25] MEDS: SODIUM CHLORIDE 0.9% 1000ML 1,000 ML IV SCH (18:35)
[2020-04-25] MEDS: KETOROLAC 30 MG/ML VIAL IV SCH ×2 (18:37→23:37)
[2020-04-25] MEDS: HYDROmorphone INJ 0.5 MG/0.5 ML SYR IV PRN (20:07)
[2020-04-25] MEDS: DOCUSATE SODIUM 100 MG CAP PO SCH (20:08)
[2020-04-25] MEDS: ASPIRIN 81 MG ECTAB PO SCH (20:08)
[2020-04-25] MEDS ORDERED: GABAPENTIN 600 MG TAB PO SCH (21:00)
[2020-04-25] MEDS ORDERED: ALPRAZolam 0.25 MG TABLET PO SCH (21:00)
[2020-04-25] MEDS ORDERED: SENNA 8.6 MG TAB PO SCH (21:00)
[2020-04-25] MEDS: ACETAMINOPHEN 500 MG TAB PO SCH (21:08)
[2020-04-26] MEDS: HYDROCODONE/ACETAMOPHEN 5/325MG TAB PO PRN ×2 (01:58→08:35)
[2020-04-26] MEDS ORDERED: VANCOMYCIN HCL 1,250 MG in SODIUM CHLORIDE 0.9% 250 ML IV SCH (02:00)
[2020-04-26] MEDS: SODIUM CHLORIDE 0.9% 1000ML 1,000 ML IV SCH (04:28)
[2020-04-26 05:25] LABS: Hematocrit (blood only) 34.1 % (37-47); Hemoglobin 11.4 g/dL (12.0-16.0); Mean Corpuscular Hemoglobin 34.1 pg (25-34); Mean Corpuscular Hgb Conc 33.4 g/dL (32-36); Mean Corpuscular Volume 102.1 fL (80-100); Mean Platelet Volume 10.7 fL (7.4-10.4); Platelet Count 326 K/uL (130-400); RDW Coefficient of Variation 12.3 % (11.5-14.5); RDW Standard Deviation 45.7 fL (36.4-46.3); Red Blood Count 3.34 M/uL (4.2-5.4); White Blood Count 7.55 K/uL (4.8-10.8)
[2020-04-26] MEDS: ACETAMINOPHEN 500 MG TAB PO SCH (05:33)
[2020-04-26] MEDS: KETOROLAC 30 MG/ML VIAL IV SCH (05:40)
[2020-04-26] MEDS: HYDROmorphone INJ 0.5 MG/0.5 ML SYR IV PRN (05:48)
[2020-04-26 05:50] LABS: Calcium 8.3 mg/dl (8.5-10.1); Creatinine Clr Calc Pharmacy 73.4 ml/min; Est GFR (African American) 79.6; Est GFR (Non-African American) 68.6; Potassium 4.5 mmol/L (3.5-5.1)
--- NOTE | 2020-04-26 08:27 | Anesthesiology Progress Note ---
Date of Service April 26, 2020 Anesthesia Post Procedure Vital Signs Vital Signs: Temp Pulse Pulse Resp BP BP Pulse Ox 04/26/20 07:27 36.7 C 71 17 144/81 H 97 04/26/20 02:09 36.4 C L 80 16 147/94 H 98 04/25/20 23:02 36.8 C 107 H 16 143/81 H 91 04/25/20 20:53 36.8 C 90 18 135/75 96 04/25/20 19:43 36.6 C 92 H 18 123/79 94 04/25/20 18:57 36.8 C 93 H 18 132/86 95 04/25/20 18:15 36.7 C 71 16 143/83 H 97 04/25/20 18:12 36.7 C 82 16 142/80 H 95 04/25/20 17:30 67 16 124/79 96 04/25/20 17:15 36.9 C 74 16 137/73 96 04/25/20 17:05 67 16 124/72 96 04/25/20 16:55 63 14 119/75 99 04/25/20 16:45 37.5 C 81 20 106/62 96 04/25/20 13:51 37.2 C 96 H 20 134/95 95 Pain Intensity Right Knee: Pain Intensity: 6 Notes Mental Status: alert / awake / arousable and participated in evaluation Patient Amnestic to Procedure: Yes Nausea / Vomiting: adequately controlled Pain: adequately controlled Airway Patency, RR, SpO2: stable & adequate BP & HR: stable & adequate Hydration State: stable & adequate Neuraxial Anesthesia: was administered and sensory block resolved Anesthetic Complications: no major complications apparent
[2020-04-26] MEDS: DOCUSATE SODIUM 100 MG CAP PO SCH (08:34)
[2020-04-26] MEDS: ASPIRIN 81 MG ECTAB PO SCH (08:34)
[2020-04-26] MEDS ORDERED: PANTOprazole 40 MG TAB PO SCH (09:00)
[2020-04-26] MEDS ORDERED: MULTIVITAMIN TAB PO SCH (09:00)
--- NOTE | 2020-04-26 16:15 | Orthopedic Progress Note ---
Date of Service April 26, 2020 Assessment & Plan (1) Postoperative wound dehiscence: Overall she is doing very well. Is not having much pain in the right knee. The wound culture which I took directly on top of the dehisced wound did grow out staph species. The infection did not track deep into the knee. She is orthopedically stable for discharge to home today. I am going to start her on Bactrim DS twice a day for antibiotics. She can stay on that for 2 weeks until she is seen in the office. I gave her some [facility] for pain control and aspirin for DVT prophylaxis. We will see her in the office in 2 weeks. Present on Admission?: Yes Subjective Aleisha was seen and examined at bedside this morning. Overall she is doing very well. She is having much pain in the right knee. She was able to get some s leep last night. She had no complaints. Physical Exam Musculoskeletal: On physical examination of the right knee, the dressing is clean and dry. Her legs out in full extension. She has active dorsiflexion and plantarflexion of the right ankle. Results & Data ([facility]) Vital Signs (Past 12 Hours) Vital Signs Temp Pulse Pulse Resp BP BP Pulse Ox 04/26/20 08:43 36.7 C 67 71 17 147/94 H 144/81 H 97 04/26/20 07:27 36.7 C 71 17 144/81 H 97 PG Care Time/CCT Total # of Minutes Spent Total Time Spent with Patient: Total time spent is greater than 50% in coordination of care (as documented) at patient's floor/unit and/or counseling patient: Coding Level of Care Code None Diagnoses Postoperative wound dehiscence T81.31XA
--- NOTE | 2020-04-26 16:19 | Discharge Summary ---
Date of Service April 26, 2020 Admission HPI Per Admitting Provider Aleisha is a pleasant 59-year-old female who underwent a right total knee arthroplasty about 6 weeks ago. 2 weeks after the procedure she was seen in our office and she was doing well. 4 weeks after the procedure she came back to the office and noticed little bumps on her incision that had expressed a small amount of clear liquid. We were unable to express any clear fluid in the office but it looks like she had a couple of small suture abscesses around the incision. She continued to progress well with her knee and we started her on Keflex. Unfortunately she only tolerated the Keflex for about 4 days. She did not call our office to tell us that she had stopped the Keflex. She then fell earlier today directly onto her right flexed knee. She dehisced the wound. She called our office and I had her sent directly over the hospital for an urgent I&D of the right knee with possible poly-exchange. Principal Diagnosis Right wound dehiscence Discharge Data Allergies Allergy/AdvReac Type Severity Reaction Status Date / Time oxycodone [From Percocet] Allergy Mild HIVES,RASH Verified 03/08/20 09:48 amitriptyline [From Elavil] AdvReac Mild MENTAL Verified 03/08/20 09:48 EFFECT - "went blank" cephalexin [From Keflex] AdvReac Nausea Verified 04/25/20 13:30 zolpidem [From Ambien] AdvReac MENTAL Verified 03/08/20 09:48 EFFECT "went blank" Consultations 04/25/20 17:48 Consult Case Management - Discharge Planning Routine Procedures Performed Operation Date: 04/25/20 10:20 Actual Procedures p Incision and Debridement of Right Knee wound Dehiscence, Right Knee Irrigation and Debridement(Right) - Forest Carrillo DO Hospital Course (1) Postoperative wound dehiscence: On April 25, 2020 Aleisha arrived at [facility] with a dehisced wound of her right knee. She underwent an I&D and dehisced wound closure without complication. There was nothing that tracked deep into the knee. Postoperatively she was started on aspirin for DVT prophylaxis, she was placed on narcotics for pain control, and she was started on vancomycin for antimicrobial prophylaxis. She was then transferred to the general orthopedic floors. Her hospital course was uneventful. On postop day #1 she was feeling well. The wound culture did grow out a staph species. I placed her on Bactrim DS twice a day. She was then discharged home. She will follow-up with orthopedics in 2 weeks. Total Time Total Time Spent Total Time Spent (In Minutes): 20 Discharge Plan Discharge Items Patient Disposition: Home - Home Health Services Reason For Visit: Wound Dehiscence Right Knee Discharge Diagnosis: Wound dehiscence right knee Activity: Resume your previous activity Non-emergency contact: Surgeon Call non-emergency contact if: your wound has increased redness and your wound has increased drainage Follow-up/Referrals: Silverio Banks MD [Primary Care Provider] - Diet: Regular Addtl Attending Provider Instructions: Activity and Therapy Recommendations: * If you are using [facility] then therapy will be provided at your home until they feel you have accomplished all of your goals. * If you are using [facility] then Physical Therapy will be provided until they feel you are ready to start Outpatient Physical Therapy. * If you are not using home therapy then Outpatient Physical Therapy should start about 3-5 days from your day of surgery. Therapy will last about 6-10 weeks * It is important not to put a pillow under your knee when you are relaxing or sleeping. It is just as important to make sure you are getting your knee perfectly straight as it is to regain your knee bend. * You were shown a series of exercises in the hospital. Do these exercises three times each day including the exercises you were shown in physical therapy. * Get up and walk several times each day. For the first four weeks, try not to stand or walk for more than one hour at a time. If you do stand or walk for more than one hour, you will not hurt anything, but your leg will likely swell. * As you feel comfortable, you may change from the walker or crutches to a cane and then to independent walking. Medications: * Narcotic You will likely be sent home from the hospital with a prescription for the narcotic pain medication that worked best throughout your stay. * Bactrim. Take the Bactrim as prescribed. * Other medications may be prescribed for specific circumstances. If you have any questions, please call the office at . * Resume previous home medications unless otherwise instructed TEDs/Elastic Stockings: The white elastic stockings help limit swelling and prevent blood clots from forming in your legs.~ The more you wear them, the more they work. Wear them for six weeks. Dressing Care: You may remove the Silverlon dressing in 7 days. If the incision is not draining then you may leave the dedra open to air. If there is a little bit of drainage or if the dedra are getting stuck on your clothing then cover the incision with a dry dressing. The dedra will be removed at your 2 week follow-up appointment. Showering: You may shower with the Silverlon dressing in place. After 7 days you may remove the dressing and shower with the dedra exposed. Let the soapy shower water run over the dedra and pat them dry. Do not scrub or soak the incision. Things To Watch For: * Drainage from the incision site that occurs more than one week after your surgery. * Increased redness at the incision site. * Fever above 102 degrees Fahrenheit. * Unusual chest pain or shortness of breath. * Call [facility] at with any of the above problems Follow-Up Visit: Follow-up with Dr. Carrillo's PA (Forest Pabon) 2-3 weeks after your day of surgery. He will remove your dedra and answer any questions. If you have any additional questions or concerns, Dr Carrillo is usually in the office at the same time and will be available An appointment was probably scheduled when you signed-up for surgery in the office. If you have any questions call Office Instructions: More detailed instructions as well as Frequently Asked Questions were provided in a folder by our office when you signed-up for surgery. Please review these instructions when you get home. If you have any further questions or concerns, please feel free to call the office at [phone] Pending Studies at Discharge: No Stand-Alone Forms: My [facility] [id number], Opioid Pain Management, Smoking Cessation Medications and DC Order Prescriptions: New aspirin 81 mg Tablet,Delayed Release (Dr/Ec) 81 mg PO BID 42 Days Qty: 0 RF: 0 hydrocodone-acetaminophen [Beemer] 5-325 mg tablet 1 tab PO Q6H PRN (Reason: pain) Qty: 30 RF: 0 sulfamethoxazole-trimethoprim [Bactrim DS] 800-160 mg tablet 1 tab PO BID 14 Days Qty: 28 RF: 0 Continued alprazolam [Xanax] 0.25 mg Tablet 0.25 mg PO TID RF: 0 ibuprofen 600 mg Tablet 600 mg PO Q8H PRN (Reason: Pain) RF: 0 diphenhydramine-acetaminophen [Tylenol PM Extra Strength] 25-500 mg Tablet 1 tab PO HS RF: 0 omeprazole magnesium [Prilosec OTC] 20 mg Tablet,Delayed Release (Dr/Ec) 20 mg PO QAM RF: 0 gabapentin 600 mg Tablet 1,200 mg PO TID RF: 0 hydrocodone-acetaminophen [Beemer] 5-325 mg tablet 1 tab PO Q6H PRN (Reason: pain) Qty: 30 RF: 0 Discontinued hydrocodone-acetaminophen [Beemer] 10-325 mg tablet 1 tab PO Q6H PRN (Reason: pain) Qty: 30 RF: 0 hydrocodone-acetaminophen [Beemer] 5-325 mg tablet 1 tab PO Q6H PRN (Reason: pain) Qty: 30 RF: 0 hydrocodone-acetaminophen [Beemer] 5-325 mg tablet 1 - 2 tab PO Q6H PRN (Reason: pain) Qty: 30 RF: 0 cephalexin [Keflex] 500 mg capsule 500 mg PO Q6H PRN (Reason: inflammation) 7 Days Qty: 28 RF: 0 hydrocodone-acetaminophen [Beemer] 10-325 mg Tablet 1 tab PO Q6H PRN (Reason: pain) Qty: 40 RF: 0 Discharge Orders: Discharge Order (Routine); Ordered 04/26/20 Ordered By: Forest Carrillo Admission Data Admit Date/Time: 04/25/20 16:49 Attending Provider: Forest Carrillo Admit Provider: Forest Carrillo Primary Care Provider: Silverio Banks Other Interventions: Discharge Summary Assessment (RN) Last Done: 04/26/20 08:43 DC Date/Time DO NOT enter until pt leaves facility: 04/26/20 09:19 Coding Level of Care Code D/C Day Management <30 mins Diagnoses Postoperative wound dehiscence T81.31XA
== END 2020-04-26 09:19 | disposition home health service (06) ==
LOC: 3E 13:04 → ASU 13:04